=== PATIENT | male | born 1975 | race Two or more races ===

== ENCOUNTER 2023-03-04 10:21 | Emergency (ER) | payer OTHER ==
[~2023-03-04] VITALS: Ht 170.2 cm; Wt 125.6 kg
[2023-03-04] MEDS ORDERED: HYZAAR 100-12.1 EACH (10:50)
[2023-03-04] MEDS ORDERED: LIPOFEN50 MG (10:50)
[2023-03-04] MEDS ORDERED: CRESTOR20 MG (10:51)
[2023-03-04] MEDS ORDERED: CYCLOBENZAPRINE10 MG PO (15:26)
[2023-03-04] MEDS ORDERED: KETO10TA2 PO (15:26)
== END 2023-03-04 16:03 | disposition home or self-care (01) ==
LOC: ER 10:22
DX: M54.32 Sciatica, left side (principal); I10 Essential (primary) hypertension